=== PATIENT | female | born 1965 | race Caucasian/White ===

== ENCOUNTER 2019-04-24 00:56 | Inpatient (IN) | payer MEDICAID ==
[~2019-04-24] VITALS: Ht 170.2 cm; Wt 82.2 kg
[2019-04-24 00:59] VITALS: Ht 170.2 cm; Wt 82.2 kg
[2019-04-24 01:39] LABS: BASOPHIL % 1.8 % (0-2); PLATELET COUNT 345 x10^3mcL (130-400); RED CELL DISTRIBUTION WIDTH 12.7 % (11.5-14.5)
[2019-04-24 01:51] LABS: CALCIUM 10.2 mg/dL (8.5-10.1); CARBON DIOXIDE 27.8 mmol/L (21-32); CHLORIDE SERUM 103 mmol/L (98-107); CREATININE SERUM 0.7 mg/dL (0.6-1.0); GFR1 > 60 mL/min; GLUCOSE SERUM 157 mg/dL (74-106); POTASSIUM SERUM 4.3 mmol/L (3.5-5.1); SODIUM SERUM 144 mmol/L (136-145)
[2019-04-24 01:56] LABS: ALBUMIN 4.2 g/dL (3.4-5.0); ALKALINE PHOSPHATASE 103 U/L (46-116); ALT/SGPT 23 U/L (14-59); AST/SGOT 29 U/L (15-37); BILIRUBIN TOTAL 0.7 mg/dL (0.20-1.00); LIPASE 199 IU/L (73-393)
[2019-04-24 01:57] LABS: TOTAL PROTEIN, SERUM 8.4 g/dL (6.4-8.2)
[2019-04-24 04:26] LABS: MAGNESIUM 2.1 mg/dL (1.8-2.4); PHOSPHOROUS 2.7 mg/dL (2.5-4.9)
[2019-04-24 04:32] LABS: CHOLESTEROL/HDL RATIO 2.4; T3 TOTAL 1.68 ng/mL
[2019-04-24 04:41] LABS: FREE T4 1.71 ng/dL (0.76-1.46); FREE THYROXINE INDEX 4.4 ug/dL (1.4-4.5); T4(THYROXINE) 12.6 ug/dL (4.7-13.3)
[2019-04-24 05:35] VITALS: BP 148/85
[2019-04-24 08:38] VITALS: BP 140/74
[2019-04-24 09:18] LABS: BASOPHIL % 0.5 % (0-2); PLATELET COUNT 227 x10^3mcL (130-400); RED CELL DISTRIBUTION WIDTH 13.6 % (11.5-14.5)
[2019-04-24 09:29] LABS: CALCIUM 8.4 mg/dL (8.5-10.1); CARBON DIOXIDE 28.1 mmol/L (21-32); CHLORIDE SERUM 109 mmol/L (98-107); CREATININE SERUM 0.6 mg/dL (0.6-1.0); GFR1 > 60 mL/min; GLUCOSE SERUM 94 mg/dL (74-106); POTASSIUM SERUM 4.6 mmol/L (3.5-5.1); SODIUM SERUM 145 mmol/L (136-145)
[2019-04-24 11:24] LABS: microscopic required? YES; urine erythrocyte NEGATIVE (NEGATIVE)
[2019-04-24 16:19] VITALS: BP 146/83
[2019-04-24 21:06] VITALS: BP 157/85
[2019-04-25 05:56] VITALS: BP 166/80
[2019-04-25 06:00] LABS: BASOPHIL % 0.5 % (0-2); PLATELET COUNT 214 x10^3mcL (130-400); RED CELL DISTRIBUTION WIDTH 13.8 % (11.5-14.5)
[2019-04-25 06:25] VITALS: BP 165/85
[2019-04-25 06:27] LABS: CALCIUM 8.5 mg/dL (8.5-10.1); CARBON DIOXIDE 25.8 mmol/L (21-32); CHLORIDE SERUM 110 mmol/L (98-107); CREATININE SERUM 0.6 mg/dL (0.6-1.0); GFR1 > 60 mL/min; GLUCOSE SERUM 85 mg/dL (74-106); MAGNESIUM 1.8 mg/dL (1.8-2.4); POTASSIUM SERUM 3.7 mmol/L (3.5-5.1); SODIUM SERUM 146 mmol/L (136-145)
[2019-04-25 09:22] VITALS: BP 147/73
[2019-04-25] MEDS ORDERED: LEVAQUIN750 MG PO (11:00)
[2019-04-25] MEDS ORDERED: BD LACTINEX1.4 MG PO (11:03)
[2019-04-25] MEDS ORDERED: ZES10 PO (11:06)
[2019-04-25] MEDS ORDERED: METAMUCIL FIBE3.4 GM PO (11:12)
[2019-04-25 12:58] VITALS: BP 147/73
== END 2019-04-25 13:15 | disposition home or self-care (01) | DRG 249 ==
LOC: ED 00:56 → DU 03:16 → MU 03:16
PROVIDERS: Emergency Medicine; ADMIT Internal Medicine
DX: K52.9 Noninfective gastroenteritis and colitis, unspecified (principal); D72.829 Elevated white blood cell count, unspecified; Z68.27 Body mass index [BMI] 27.0-27.9, adult
CPT/HCPCS: 82962; 84439; A9698; G0378; J2060; J2270; J2405; J2543; J3490; J7030; Q9967

== ENCOUNTER 2019-06-06 10:29 | Inpatient (IN) | payer MEDICAID ==
[~2019-06-06] VITALS: Ht 167.6 cm; Wt 83.9 kg
[~2019-06-06 10:29] MED LIST: BD LACTINEX1.4 MG PO; LEVAQUIN750 MG PO; METAMUCIL FIBE3.4 GM PO; ZES10 PO
[2019-06-06 10:39] VITALS: Ht 167.6 cm; Wt 83.9 kg
--- NOTE | 2019-06-06 10:48 | NUR ---
PLACED IN BED 8 FOR EVAL.
--- NOTE | 2019-06-06 11:15 | NUR ---
PT COMES TO ER WITH C/O PRESSURE LIKEPAIN 10/10 TO JOANNE LOWER QUADS AND ANUS ANAL THAT STARTED LAST NIGHT. ALSO WITH NAUSEA/VOMTING. LAST BM YESTERDAY IN AM-DIARRHEA. PT FEBRILE AT THIS TIME, MEDICATED IN TRAIGE AND COOLING MEASURES INITIATED. PT CRYING ANND WHEN ASKED, SHE STATES HER LOWERBACK HURTS WELL AND JOANNE KNEE PAIN, DENIES ANY ACUTE INJURY. PT SLIGHTLY TACYPNIC, 24 BREATHS/MIN, VERBALIZES HAVING ANXIETY. ABD LARGE, VERY TENDER TO PALAPTION, DENIES DYSURIA AT THIS TIME. SON AT BEDSIDE. WILL CONT TOMONITOR.
[2019-06-06 11:38] LABS: BASOPHIL % 0.2 % (0-2); PLATELET COUNT 207 x10^3mcL (130-400); RED CELL DISTRIBUTION WIDTH 13.6 % (11.5-14.5)
[2019-06-06 11:52] LABS: CALCIUM 9.1 mg/dL (8.5-10.1); CHLORIDE SERUM 106 mmol/L (98-107); CREATININE SERUM 0.9 mg/dL (0.6-1.0); GFR1 > 60 mL/min; GLUCOSE SERUM 135 mg/dL (74-106); POTASSIUM SERUM 3.5 mmol/L (3.5-5.1); SODIUM SERUM 140 mmol/L (136-145)
[2019-06-06 11:56] LABS: ALBUMIN 3.2 g/dL (3.4-5.0); ALKALINE PHOSPHATASE 104 U/L (46-116); ALT/SGPT 27 U/L (14-59); AST/SGOT 32 U/L (15-37); BILIRUBIN DIRECT 0.24 mg/dL (0.0-0.2); LIPASE 60 IU/L (73-393)
--- NOTE | 2019-06-06 12:10 | NUR ---
PT REPORTS RELIEF OF PAIN AFTER MORPHINE, DR MCKAY.
--- NOTE | 2019-06-06 12:43 | NUR ---
PT TO CT SCAN VIA [facility]
[2019-06-06 14:02] LABS: UA SPECIFIC GRAVITY <=1.005 (1.005-1.035); microscopic required? YES; urine erythrocyte TRACE (NEGATIVE)
--- NOTE | 2019-06-06 14:07 | NUR ---
PT REPORTS FEELING BETTER AFTER PAIN MEDICATION. VSS. FAMILY AT BEDSIDE.
--- NOTE | 2019-06-06 16:18 | NUR ---
REPORT GIVEN TO ANTOLIN, UPDATED ON STATUS, LABS, AND VITALS.PT STABLE FOR TRANSFER. ALL BELONGINGS WITH PT. VSS.
[2019-06-06 16:34] LABS: MAGNESIUM 1.6 mg/dL (1.8-2.4); PHOSPHOROUS 1.5 mg/dL (2.5-4.9)
[2019-06-06 16:52] VITALS: BP 127/64
[2019-06-06 16:53] LABS: AMPHETAMINE QUAL UR NONE DETECTED (See below)
--- NOTE | 2019-06-06 17:02 | NUR ---
RECEIVED PT FROM ER, PT ADMIT FOR SEPSIS, ABD PAIN, PT IS A/O X4,VERBAL RESPONSIVE, ABLE TO TELL WHAT SHE NEEDS. LUNG SOUND CLEAR BILATERAL, NO COUGH, NO SOB, PT IS ON TELE 2, NSR, DENY ANY CHEST PAIN OR DISCOMFORT, BOWEL SOUND PRESENT ALL 4 QUADRANTS, HYPOACTIVE, MILD DISTENTED. C/O ABD MILD PAIN AT THIS MOMENT, PEDAL PULS PRESENT BOTH FEET, NO EDEMA, IV AT LEFT AC, NO LEAKING, NO INFILTRATION. ALL ADLS ASSIST, ALL NEED MET, CALL LIGHT IN REACH, WILL CONTINUE TO MONITOR.
[2019-06-06 17:23] LABS: CHOLESTEROL/HDL RATIO 1.7
--- NOTE | 2019-06-06 18:16 | NUR ---
PT LYING IN BED TALKING WITH DAUGHTER AT BEDSIDE. APPEARS IN NO ACUTE DISTRESS. DENIES ABD PAIN AT THIS TIME. IV INTACT AND PATENT. BED IN LOW POSITION. CALL LIGHT WITHIN REACH. WILL BE ENDORSED.
--- NOTE | 2019-06-06 19:30 | NUR ---
PT IS A/O x4. ON TELE #2, NSR. DENIES ANY CHEST PAIN OR PRESSURE. PULSES ARE PRESENT. NO EDEMA NOTED. LUNGS CLEAR IN ALL FEILDS. ON RA, DENIES ANY SOB. EQUAL CHEST RISE AND FALL. NO SIGN OF RESP DISTRESS. BOWEL SOUNDS HYERPACTIVE x4. ABD IS ROUND AND SOFT. SLIGHT TENDERNESS ON RLQ WHEN PALPATED. DENIES ANY CONSTANT PAIN OR DISCOMFORT. SKIN WARM AND INTACT. DENIES ANY PAIN AT THIS TIME. IV ON LAC INTACT AND PATENT. NO SIGN OF INFILTRATION OR IRRITIONATION NOTED. BED IS AT LOWEST SETTING. US TECH AT BEDSIDE FOR ULTRASOUND. AT BEDSIDE. CALL LIGHT WITHIN REACH. WILL CONTINUE TO MONITOR.
[2019-06-06 20:16] VITALS: BP 114/63
--- NOTE | 2019-06-07 00:50 | NUR ---
PT WAS COMPLAINING OF A MCHUGH 3-02/02. GAVE PRN TYLENOL PER EMAR. PT ALSO COMPLAIN OF FEELING STRANGELED WITH THE GOWN, PT CHANGED INTO HER PERSONAL PJS. INSTRUCT PT THAT SHE WILL NEED TO PUT GOWN BACK ON IN THE AM. PT AGREED. WILL CONTINUE TO CASSIDY.
--- NOTE | 2019-06-07 03:12 | NUR ---
PT COMPLAIN OF FEELING RESTLESS AND AGITATED. PT REQUEST A PILL TO HELP HER CALM DOWN. GAVE PRN ATIVAN PER EMAR. WILL CONTINUE TO MONTIOR.
[2019-06-07 06:01] VITALS: BP 145/75
[2019-06-07 06:32] LABS: BASOPHIL % 0.4 % (0-2); PLATELET COUNT 164 x10^3mcL (130-400); RED CELL DISTRIBUTION WIDTH 13.8 % (11.5-14.5)
--- NOTE | 2019-06-07 06:41 | NUR ---
PT IS RESTING IN BED. DENIES ANY PAIN OR DISTRESS AT THIS TIME. ABD IS SLIGHTLY DISTENDED THIS MORNING. PT ALSO STATED THIS HAS BEEN HAPPENING FOR THE PAST MONTH. NOTIFIED STUDENT MD. NO ACUTE EVENT OCCURED AT NIGHT. BED IS AT LOWEST SETTING. CALL LIGHT WITHIN REACH. WILL ENDORSE TO AM NURSE.
[2019-06-07 06:42] LABS: CALCIUM 8.5 mg/dL (8.5-10.1); CARBON DIOXIDE 22.8 mmol/L (21-32); CHLORIDE SERUM 108 mmol/L (98-107); CREATININE SERUM 0.6 mg/dL (0.6-1.0); GFR1 > 60 mL/min; GLUCOSE SERUM 75 mg/dL (74-106); MAGNESIUM 1.8 mg/dL (1.8-2.4); PHOSPHOROUS 2.9 mg/dL (2.5-4.9); POTASSIUM SERUM 3.2 mmol/L (3.5-5.1); SODIUM SERUM 140 mmol/L (136-145)
--- NOTE | 2019-06-07 08:00 | NUR ---
RC'D PT RESTING IN BED WITH NO APPARENT SIGNS OF DISTRESS. A/A/O/X4, SPEECH CLEAR AND APPROPRIATE. ON TELE, DENIES CP/PRESSURE. PALP PULSES, NO EDEMA NOTED. RESPIRATIONS EQUAL AND UNLABORED. LUNGS CTA. ON RA, DENIES SOB. ABDOMEN DISTENDED AND SOFT, PT DENIES PAIN AT THIS TIME. ACTIVE BS. DENIES N/V. VOIDS FREELY. AMBULATORY. SKIN W/D/I. IV PATENT AND INTACT. BED IN LOW POSITION. CALL LIGHT IN REACH. WILL CONTINUE TO MONITOR
[2019-06-07 08:11] VITALS: BP 150/68
--- NOTE | 2019-06-07 11:02 | NUR ---
PT RESTING IN BED WITH NO APPARETN SIGNS OF DISTRESS. RESPIRATIONS EQUAL AND UNLABORED. ON RA, DENIES SOB. PT DENIES PAIN. BED IN LOW POSITION. CALL LIGHT IN REACH. WILL CONT TO MONITOR
[2019-06-07 12:20] VITALS: BP 166/90
--- NOTE | 2019-06-07 14:12 | NUR ---
Discount pharmacy card and list to low cost medical clinics given to patient by Jose Shah.
--- NOTE | 2019-06-07 14:47 | NUR ---
RECEIVED PT FROM SHEILA SAINI. PT IS A/O X4, VERBAL RESPONSIVE, DENY ANY RESPIRATORY DISTRESS, DENY ANY PAIN OR DISCOMFORT AT THIS MOMENT, PT TOLERATED WELL WITH CLEAR LIQUID DIET, IV AT LEFT AC, NO LEAKING, NO INFILTRAITON. ALL ADLS ASSIST, ALL NEED MET, CALL LIGHT IN REACH, WILL CONTINUE TO MONITOR.
[2019-06-07 16:59] VITALS: BP 162/82
--- NOTE | 2019-06-07 18:07 | NUR ---
PT IS A/O X4, VERBAL RESPONSIVE, DENY ANY RESPIRATORY DISTRESS, C/O MILD PAIN AT LOW ABD. IV AT LEFT AC, NO LEAKING, NO INFILRATION. ALL ADLS ASSIST ALL NEED MET, CALL LIGHT IN REACH, WILL CONTINUE TO MONITOR.
--- NOTE | 2019-06-07 19:20 | NUR ---
RECEIVED PT IN BED RESTING. AAOX4. BREATHING EVEN AND UNLABORED. DENIES ANY PAIN AT THIS TIME. IV SITE PATENT AND INTACT. BED IN LOWEST POSITION,CALL LIGHT WITHIN REACH. WILL CONTINUE TO MONITOR.
[2019-06-07 20:21] VITALS: BP 143/74
--- NOTE | 2019-06-07 22:18 | NUR ---
PT C/O ANXIETY. MEDICATED ATIVAN 1MG PO ORDERED. WILL CONTINUE TO MONITOR.
--- NOTE | 2019-06-07 23:25 | NUR ---
PT C/O INSOMIA. MEDICATED AMBIEN 5MG PO ORDERED. WILL CONTINUE TO MONITOR.
--- NOTE | 2019-06-08 05:01 | NUR ---
PT APPEARS TO BE SLEEPING. NO SOB NOTED. NO S/S OF PAIN OR ANY DISCOMFORT. BED IN LOWEST POSITION,CALL LIGHT WITHIN REACH. WILL CONTINUE TO MONITOR.
[2019-06-08 06:01] VITALS: BP 148/80
[2019-06-08 07:00] LABS: BASOPHIL % 0.7 % (0-2); PLATELET COUNT 185 x10^3mcL (130-400); RED CELL DISTRIBUTION WIDTH 13.4 % (11.5-14.5)
--- NOTE | 2019-06-08 07:10 | NUR ---
RECEIVED PT FROM NIGHT NURSE. PT IS LAYING DOWN IN BED WITH HOB UP RESTING. PT LOOKS TO BE IN NO ACUTE DISTRESS AND STATES PAIN TO THE LOWER ABD IS TOLERABLE AT THIS TIME. RESPIRATIONS EVEN AND UNLABORED ON ROOM AIR. IV SITE PATENT WITH NO SIGNS OF ERYTHEMA OR SWELLING WITH IV FLUIDS INFUSING. BED IN LOWEST POSITION, CALL LIGHT WITHIN REACH. WILL CONITNUE TO MONITOR.
[2019-06-08 07:17] LABS: ALBUMIN 2.7 g/dL (3.4-5.0); ALKALINE PHOSPHATASE 122 U/L (46-116); ALT/SGPT 42 U/L (14-59); AST/SGOT 53 U/L (15-37); BILIRUBIN TOTAL 0.22 mg/dL (0.20-1.00); CALCIUM 8.4 mg/dL (8.5-10.1); CHLORIDE SERUM 111 mmol/L (98-107); CREATININE SERUM 0.6 mg/dL (0.6-1.0); GFR1 > 60 mL/min; GLUCOSE SERUM 125 mg/dL (74-106); POTASSIUM SERUM 3.6 mmol/L (3.5-5.1); SODIUM SERUM 145 mmol/L (136-145); TOTAL PROTEIN, SERUM 6.4 g/dL (6.4-8.2)
--- NOTE | 2019-06-08 07:28 | NUR ---
CARE ENDORSED TO DAY NURSE AIDAN.
[2019-06-08 09:15] VITALS: BP 182/95
--- NOTE | 2019-06-08 10:20 | NUR ---
PT BLOOD PRESSURE HIGH 197/102 , MAP: 125, HR: 69. DR. MUELLER MADE AWARE.
[2019-06-08] MEDS ORDERED: ZES10 PO (10:21)
[2019-06-08] MEDS ORDERED: FLA500 PO (12:29)
[2019-06-08] MEDS ORDERED: LEV500 PO (12:30)
--- NOTE | 2019-06-08 13:00 | NUR ---
PT AWAKE, ALERT AND ORIENTED AT TIME OF DISCHARGE. PT LOOKS TO BE IN NO ACUTE DISTRESS AND DENIES ANY PAIN AT TIME OF DISCHARGE. PT DISCHARGED HOME AND WENT TO LOBBY VIA WHEELCHAIR ACCOMPANIED BY NURSE AND FAMILY MEMBER WITH JAEL IN HAND. PROVIDED PT FAMILY WITH EDUCATION AND PRESCRIPTIONS. PT AND FAMILY VERBALIZED UNDERSTANDING OF EDUCATION. INFORMED PT OF NECCESSITY TO FINISH FULL COURSE OF ANTIBIOTICS, PT AND FAMILY VERBALIZED UNDERSTANDING. INFORMED PT OF FOLLOW UP APPOINTMENT AND THE NEED TO GO TO FOLLOW UP APPOINTMENT, PT VERBALIZED UNDERSTANDING. IV REMOVED AND CATHETER FULLY INTACT. ID BANDS REMOVED. ALL QUESTIONS AND CONCERNS ADDRESSED.
[2019-06-08 13:32] VITALS: BP 144/92
== END 2019-06-08 14:19 | disposition home or self-care (01) | DRG 872 ==
LOC: ED 10:29 → DU 15:43 → MU 06-07 15:49
PROVIDERS: Internal Medicine; Student in an Organized Health Care Education/Training Program; ADMIT Internal Medicine
DX: A41.9 Sepsis, unspecified organism (principal); E44.1 Mild protein-calorie malnutrition; I10 Essential (primary) hypertension; A08.4 Viral intestinal infection, unspecified; E86.0 Dehydration; E83.42 Hypomagnesemia; E83.39 Other disorders of phosphorus metabolism; E11.65 Type 2 diabetes mellitus with hyperglycemia; Z56.0 Unemployment, unspecified; Z79.899 Other long term (current) drug therapy
CPT/HCPCS: G0378; J0696; J1956; J2270; J2405; J3490; J7030; J7060; Q0092; Q9967